=== PATIENT | male | born 1955 | race African-American/Black ===

== ENCOUNTER 2018-01-21 03:25 | Emergency (ER) | payer SELFPAY ==
--- NOTE | 2018-01-21 03:59 | ED Physician Documentation ---
Nausea/Vomiting/Diarrhea - HISTORIAN Historian: patient - HPI Stated Complaint: n/v Chief Complaint: Nausea,Vomiting,Diarrhea Additional Information: Patient, with PMH parkinson's disease, presents to ED with a 24 hour history of nausea and vomiting. Patient states he baked a chicken on for dinner. He left the chicken out on the counter for approximately 30 hours and ate another helping. He then began to experience nausea and vomiting. Patient has been unable to keep any food or liquids down. He denies fever, chills, abdominal pain or chest pain. EMS gave him Zofran and 500 ml fluid bolus enroute. Onset: hours (24) Duration: constant Timing: sudden onset Severity: moderate - Associated Symptoms Vomiting: frequent. denies: bloody, blood-streaked Diarrhea: other (No diarrhea) Abdominal Pain: none. denies: cramping, aching - ROS CONST: none CVS/RESP: denies: chest pain, shortness of breath, cough GI/: denies: constipation, black stools, bloody urine EYES/ENT: none MS/SKIN/LYMPH: denies: joint pain NEURO/PSYCH: denies: headache - PAST HX Past History: other (Parkinsons disease) Other History: denies: gall stones, ulcerative colitis Surgeries/Procedures: other (total hip) Allergies/Adverse Reactions: Allergies Allergy/AdvReac Type Severity Reaction Status Date / Time No Known Allergies Allergy Verified 01/21/18 03:47 Home Medications: Ambulatory Orders Medication Instructions Recorded Unobtainable 01/21/18 - SOCIAL HX Smoking History: non-smoker Alcohol Use: none Drug Use: none - FAMILY HX Family History: none - VITAL SIGNS Vital Signs: Vital Signs Temp Pulse Resp BP Pulse Ox 98.3 F 91 H 18 136/90 98 01/21/18 03:43 01/21/18 03:43 01/21/18 03:43 01/21/18 03:43 01/21/18 03:43 - REVIEWED ASSESSMENTS Nursing Assessment Reviewed: Yes Vitals Reviewed: Yes Progress - Progress Progress: 0444 Patient is resting comfortably. Labs WNL. Will continue fluids. 0624 Patient sleeping. No vomiting since presentation to ED. Will discharge to home. ED Results Lab/Radiology - Lab Results Lab Results: Lab Results 01/21/18 01/21/18 04:06 04:06 WBC 4.30 K/ul K/ul (4.00-12.00) RBC 4.64 M/ul M/ul (3.90-5.20) Hgb 14.2 g/dL g/dL (12.0-18.0) Hct 42.5 % % (37.0-53.0) MCV 92.0 fl fl (80.0-100.0) MCH 30.6 pg pg (28.0-34.0) MCHC 33.4 g/dL g/dL (30.0-36.0) RDW 14.0 % % (11.3-14.3) Plt Count 252 K/mm3 K/mm3 (130-400) Neut % (Auto) 74.6 % % (39.0-79.0) Lymph % (Auto) 16.6 % % (16.0-50.0) Banner % (Auto) 6.1 % % (0.0-11.0) Eos % (Auto) 2.5 % % (0.0-6.8) Baso % (Auto) 0.2 (0.0-1.5) Neut # (Auto) 3.2 # k/uL # k/uL (1.4-7.7) Lymph # (Auto) 0.7 # k/uL # k/uL (0.6-4.0) Banner # (Auto) 0.3 # k/uL # k/uL (0.0-0.9) Eos # (Auto) 0.1 # k/uL # k/uL (0.0-0.6) Baso # (Auto) 0.0 # k/uL # k/uL (0.0-0.5) Sodium 142 mmol/L mmol/L (136-145) Potassium 4.4 mmol/L mmol/L (3.5-5.1) Chloride 99 mmol/L mmol/L (98-107) Carbon Dioxide 29 mmol/L mmol/L (22-30) BUN 17 mg/dL mg/dL (9-20) Creatinine 0.70 mg/dL mg/dL (0.66-1.25) Estimated Creat Clear 110 Est GFR ( Amer) > 60 (60 - ) Est GFR (Non-Af Amer) > 60 (60 - ) Glucose 110 mg/dL H mg/dL (74-106) Calcium 8.2 mg/dL L mg/dL (8.4-10.2) Total Bilirubin 0.9 mg/dL mg/dL (0.2-1.3) AST 22 U/L U/L (15-46) ALT 24 U/L U/L (13-69) Alkaline Phosphatase 74 U/L U/L (38-126) Total Protein 7.8 g/dL g/dL (6.3-8.2) Albumin 3.8 g/dL g/dL (3.5-5.0) - Orders Orders: ED Orders Category Date Time Status CBC/PLATELET/DIFF Routine Lab 01/21/18 04:06 Completed CMP Routine Lab 01/21/18 04:06 Completed 0.9 % Sodium Chloride [Normal Saline] 1,000 ml Med 01/21/18 03:47 Discontinued IV Q1H Metoclopramide HCl [Reglan] Med 01/21/18 03:47 Discontinued 5 mg IVP NOW ONE Pantoprazole Sodium [Protonix] Med 01/21/18 04:15 Discontinued 40 mg .ROUTE .STK-MED ONE Pantoprazole Sodium [Protonix] 40 mg Med 01/21/18 04:03 Discontinued 0.9 % Sodium Chloride [Sodium Chloride] 50 ml IV NOW Nausea Physical Exam - EXAM General Appearance: no acute distress, alert EENT: BOB Neck: supple Respiratory: no resp distress, chest non-tender, breath sounds normal CVS: reg rate & rhythm, heart sounds normal Abdomen: non-tender (soft). No: guarding Male Genital: other (deferred) Rectal: deferred Back: No: CVA tenderness Skin: warm/dry, normal color Extremities: non-tender, no edema Neuro/Psych: oriented X3, motor nml Discharge Clincal Impression: Food poisoning Qualifiers: Encounter type: initial encounter Injury intent: accidental or unintentional Qualified Code(s): T62.91XA - Toxic effect of unspecified noxious substance eaten as food, accidental (unintentional), initial encounter Additional Instructions: Return to ED if fever >101.0 or vomiting/diarrhea persists more than 24 hours. Condition: Stable Disposition: 01 HOME, SELF-CARE Decision to Admit: NO Date of Decison to Admit: 01/21/18 Decision Time: 06:26
[2018-01-21] MEDS: PANTOPRAZOLE SODIUM 40 MG in 0.9 % SODIUM CHLORIDE 50 ML IV ONE (04:10)
[2018-01-21] MEDS: METOCLOPRAMIDE HCL 10 MG/2 ML VIAL IVP ONE (04:10)
[2018-01-21] MEDS: 0.9 % SODIUM CHLORIDE 1,000 ML IV ONE (04:20)
[2018-01-21] MEDS: PANTOPRAZOLE SODIUM INJ. 40 MG VIAL ONE (04:22)
[2018-01-21 04:24] LABS: eGFR (Non-African) > 60
[2018-01-21 04:25] LABS: BASOPHILS % 0.2 (0.0-1.5); EOSINOPHILS % 2.5 % (0.0-6.8); MEAN CORPUSCULAR HEMOGLOBIN 30.6 pg (28.0-34.0); MONOCYTES % 6.1 % (0.0-11.0); NEUTROPHILS # 3.2 # k/uL (1.4-7.7)
[2018-01-21 07:47] VITALS: BP 101/75
== END 2018-01-21 07:35 | disposition home or self-care (01) ==
LOC: ED 03:25
DX: R11.2 Nausea with vomiting, unspecified (principal); T62.91XA Toxic effect of unspecified noxious substance eaten as food, accidental (unintentional), initial encounter; X58.XXXA Exposure to other specified factors, initial encounter; Y92.018 Other place in single-family (private) house as the place of occurrence of the external cause; Y93.9 Activity, unspecified; Y99.9 Unspecified external cause status; G20 Parkinson's disease
CPT/HCPCS: 80053; 85025; J7030; 96365; 96375; 99284

== ENCOUNTER 2018-07-04 08:55 | Observation (INO) | payer SELFPAY ==
[2018-07-04] MEDS ORDERED: METOCLOPRAMIDE HCL 10 MG/2 ML VIAL IVP ONE (09:05)
--- NOTE | 2018-07-04 10:41 | ED Physician Documentation ---
Hip Injury/Pain - HISTORIAN Historian: patient - HPI Stated Complaint: right hip pain Chief Complaint: Hip Injury Additional Information: Patient, with PMH of parkinson's, presents to ED via ambulance after falling at home. He complains of right hip pain. Patient admits to chronic right hip pain after getting a total hip replacement several years ago. He also reports some nausea/vomiting. Patient states he vomited this morning, what appeared to be his dinner from last night Onset: hours (2) Where: home Severity: mild Duration: persistent since Context: fall Symptoms Prior to Fall: none Other Injuries: none - ROS CONST: no problems RESP: denies: shortness of breath GI/: none EYES/ENT: none MS/SKIN/LYMPH: denies: neck pain NEURO/PSYCH: denies: confusion - PAST HX Cardiac Disease: none PE Risk Factors: none Other History: hip fracture (right), other (parkinsons ) Surgeries/Procedures: hip replacement Allergies/Adverse Reactions: Allergies Allergy/AdvReac Type Severity Reaction Status Date / Time No Known Allergies Allergy Verified 07/04/18 09:07 Home Medications: Ambulatory Orders Medication Instructions Recorded Carbidopa/Levodopa [Sinemet] 1 tab PO TID 07/04/18 Ondansetron HCl Rapdis [Zofran Odt] 4 mg PO Q8 PRN #30 tab 07/04/18 - SOCIAL HX Smoking History: non-smoker Alcohol Use: none Drug Use: none - FAMILY HX Family History: No - VITAL SIGNS Vital Signs: Vital Signs Temp Pulse Resp BP Pulse Ox 97.8 F 86 18 115/79 100 07/04/18 09:00 07/04/18 09:00 07/04/18 09:00 07/04/18 09:00 07/04/18 09:00 - REVIEWED ASSESSMENTS Nursing Assessment Reviewed: Yes Vitals Reviewed: Yes Progress - Progress Progress: 1046 Discussed xray results. Patient reports ongoing nausea. Blood pressure is also soft. Will give Zofran and 1 liter NS bolus ED Results Lab/Radiology - Radiology Radiology Impressions: Report Submission Date: Jul 04, 2018 10:32:36 AM CDT Patient Study Name: DIONE JACK Date: Jul 04, 2018 9:31:00 AM CDT Modality Type: DX Gender: M Description: RT HIP 2VIEW COMPLETE : 55 Institution: [facility] Physician: MOISES KONG EXAMINATION: RT HIP 2VIEW COMPLETE HISTORY: RT HIP/PELVIS, RT HIP/GROIN PAIN AFTER FALL COMPARISON: None FINDINGS: Right hip total arthroplasty has been performed. There is no evidence of periprosthetic fracture or lucency. No acute fracture or dislocation is identified in the pelvis. The left hip joint space is maintained. The pubic symphysis is intact. IMPRESSION: Right hip total arthroplasty without evidence of periprosthetic fracture. Electronically signed on Jul 04, 2018 10:32:36 AM CDT by: Lebron Hernandez Report Submission Date: Jul 04, 2018 10:28:39 AM CDT Patient Study Name: DIONE JACK Date: Jul 04, 2018 9:31:20 AM CDT Modality Type: DX Gender: M Description: RT FEMUR 2 VIEWS : 55 Institution: [facility] Physician: MOISES KONG Exam: Right femur. History: Medial pain after fall. AP and lateral views of the right femur are submitted. No previous studies are available for comparison. An orthopedic device replaces the right hip joint. No signs of acute fracture or dislocation is identified. No bony erosions are seen. Impression: No acute fractures detected on this study. Electronically signed on Jul 04, 2018 10:28:39 AM CDT by: Erich Matias - Orders Orders: ED Orders Category Date Time Status Place IV Lock 1T Care 07/04/18 09:04 Active RT FEMUR 2 VIEWS [RAD] Stat Exams 07/04/18 Taken RT HIP 2VIEW COMPLETE [RAD] Stat Exams 07/04/18 Taken 0.9 % Sodium Chloride [Normal Saline] 1,000 ml Med 07/04/18 10:47 Discontinued IV Q1H Metoclopramide HCl [Reglan] Med 07/04/18 09:05 Discontinued 5 mg IVP NOW ONE Ondansetron HCl/Pf [Zofran] Med 07/04/18 10:47 Discontinued 4 mg IVP NOW ONE Hip Injury/Pain Physical Exam - EXAM General Appearance: no acute distress, alert Extremities: non-tender, no pedal edema, hip tenderness (right lateral ) EENT: BOB Neck: non-tender. No: vertebral point tendernes Respiratory: chest non-tender, breath sounds nml CVS: reg rate & rhythm, heart sounds normal Abdomen: non-tender, nml bowel sounds Back: non-tender. No: vertebral point-tendernes Skin: warm/dry Neuro/Psych: oriented x3, mood/affect nml Discharge Clincal Impression: Hip pain, right Nausea & vomiting Qualifiers: Vomiting type: unspecified Vomiting Intractability: non-intractable Qualified Code(s): R11.2 - Nausea with vomiting, unspecified Prescriptions: Ondansetron HCl Rapdis [Zofran Odt] 4 mg PO Q8 PRN #30 tab PRN Reason: nausea/vomiting Referrals: Primary Doctor,No [Primary Care Provider] - 2 Days Condition: Stable Disposition: 01 HOME, SELF-CARE Decision to Admit: NO Date of Decison to Admit: 07/04/18 Decision Time: 12:21
[2018-07-04] MEDS ORDERED: ONDANSETRON HCL/PF 4 MG/ 2ML VIAL IVP ONE (10:47)
[2018-07-04] MEDS ORDERED: 0.9 % SODIUM CHLORIDE 1,000 ML IV ONE (10:47)
[2018-07-04 13:13] LABS: BASOPHILS % 1.2 % (0.0-1.5); EOSINOPHILS % 10.5 % (0.0-6.8); MEAN CORPUSCULAR HEMOGLOBIN 30.7 pg (28.0-34.0); MONOCYTES % 5.8 % (0.0-11.0)
--- NOTE | 2018-07-04 13:15 | Diagnostic Imaging Report ---
MOISES KONG [facility] [address] [facility].[address] [address] Report Submission Date: Jul 04, 2018 10:28:39 AM CDT Patient Study Name: DIONE JACK Date: Jul 04, 2018 9:31:20 AM CDT Modality Type: DX Gender: M Description: RT FEMUR 2 VIEWS : 55 Institution: [facility] Physician: MOISES OKNG Exam: Right femur. History: Medial pain after fall. AP and lateral views of the right femur are submitted. No previous studies are available for comparison. An orthopedic device replaces the right hip joint. No signs of acute fracture or dislocation is identified. No bony erosions are seen. Impression: No acute fractures detected on this study. Electronically signed on Jul 04, 2018 10:28:39 AM CDT by: Erich SCHREIBER
--- NOTE | 2018-07-04 13:16 | Diagnostic Imaging Report ---
MOISES KONG [facility] [address] [facility].[address] [address] Report Submission Date: Jul 04, 2018 10:32:36 AM CDT Patient Study Name: DIONE JACK Date: Jul 04, 2018 9:31:00 AM CDT Modality Type: DX Gender: M Description: RT HIP 2VIEW COMPLETE : 55 Institution: [facility] Physician: MOISES KONG EXAMINATION: RT HIP 2VIEW COMPLETE HISTORY: RT HIP/PELVIS, RT HIP/GROIN PAIN AFTER FALL COMPARISON: None FINDINGS: Right hip total arthroplasty has been performed. There is no evidence of periprosthetic fracture or lucency. No acute fracture or dislocation is identified in the pelvis. The left hip joint space is maintained. The pubic symphysis is intact. IMPRESSION: Right hip total arthroplasty without evidence of periprosthetic fracture. Electronically signed on Jul 04, 2018 10:32:36 AM CDT by: Lebron SCHREIBER
[2018-07-04 13:19] LABS: eGFR (Non-African) > 60
[2018-07-04] MEDS ORDERED: ENOXAPARIN SODIUM 30 MG/0.3 ML DISP.SYRIN SQ ONE (13:22)
[2018-07-04] MEDS ORDERED: ONDANSETRON HCL/PF 4 MG/ 2ML VIAL IVP PRN (13:27)
[2018-07-04] MEDS ORDERED: PROMETHAZINE HCL 25 MG TABLET PO PRN (13:29)
[2018-07-04] MEDS ORDERED: DOCUSATE SODIUM 100 MG CAPSULE PO PRN (13:32)
[2018-07-04] MEDS ORDERED: IBUPROFEN 400 MG TABLET PO PRN (13:33)
[2018-07-04 13:54] VITALS: BMI 22.1
[2018-07-04] MEDS: DEXTROSE 5 %-0.45 % SOD CHLORD 1,000 ML IV SCH (14:25)
[2018-07-04] MEDS: ACETAMINOPHEN WITH CODEINE 300MG/30MG TABLET PO PRN (20:11)
[2018-07-05] MEDS: ACETAMINOPHEN WITH CODEINE 300MG/30MG TABLET PO PRN ×2 (01:46→08:33)
[2018-07-05] MEDS: DEXTROSE 5 %-0.45 % SOD CHLORD 1,000 ML IV SCH (04:42)
[2018-07-05 09:12] VITALS: BP 110/55
--- NOTE | 2018-07-05 10:09 | Discharge Summary ---
Discharge Summary - Discharge [facility] Admission Date: 07/05/18 Discharge Date: 07/05/18 Condition at Discharge: Stable Home Medications: Ambulatory Orders Medication Instructions Recorded Carbidopa/Levodopa [Sinemet] 1 tab PO TID 07/04/18 Ondansetron HCl Rapdis [Zofran Odt] 4 mg PO Q8 PRN #30 tab 07/04/18 Consultations this Visit: None Procedures this Visit: None (he did not wish to have any services from social security assessor ) Allergies/Adverse Reactions: Allergies Allergy/AdvReac Type Severity Reaction Status Date / Time No Known Allergies Allergy Verified 07/04/18 09:07 Patient Problems: Current Active Problems Problem Status Onset Hip pain, right Acute Intractable vomiting with nausea Acute Nausea & vomiting Acute Hospital Course: Discharge obs
== END 2018-07-05 12:50 | disposition home or self-care (01) ==
LOC: ED 08:55 → SOUTH 13:15
PROVIDERS: ADMIT Physician Assistant Medical; ATTEND Nurse Practitioner Family
DX: M25.551 Pain in right hip (principal); R11.2 Nausea with vomiting, unspecified; W19.XXXA Unspecified fall, initial encounter; Y92.009 Unspecified place in unspecified non-institutional (private) residence as the place of occurrence of the external cause; Z96.641 Presence of right artificial hip joint
CPT/HCPCS: 73502; 73552; 80053; 85025; 96374; 96375; 97110; 97116; 97535; 99284; G0378; J1650; J2405; J7030; 99217; S1016; S5010

== ENCOUNTER 2018-08-07 18:54 | Emergency (ER) | payer SELFPAY ==
--- NOTE | 2018-08-07 19:36 | ED Physician Documentation ---
General Adult - HISTORIAN Historian: patient - HPI Stated Complaint: Nausea/Vomiting Chief Complaint: General Adult Onset: days ago Timing: still present Severity: moderate Further Comments: yes (Pt is a 63 yo aa male who was seen earlier at [facility] ER for n/v. A taxi-cab was arranged for pt to go home, and he vomited again on the way out of the . [facility] ER. He directed the taxi to take him here to [place] [facility]. Pt has been seen here before with c/o n/v. 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 At the [facility], he says, they gave hime only about 1/4 bag of IV fluid and then sent him home. He says he is dehydrated and that gets n/v when he is dehydrated. Pt has hx Parkinson's dz and of hip replacement. He denies cp, sob, fever, change in bm's.) - ROS CONST: weakness EYES/ENT: none CVS/RESP: none GI/: vomiting, nausea MS/SKIN/LYMPH: none - PAST HX Past History: other (Parkinson's dz, hip replacement) Allergies/Adverse Reactions: Allergies Allergy/AdvReac Type Severity Reaction Status Date / Time No Known Allergies Allergy Verified 08/07/18 19:20 Home Medications: Ambulatory Orders Medication Instructions Recorded Carbidopa/Levodopa [Sinemet] 1 tab PO TID 07/04/18 Ondansetron HCl Rapdis [Zofran Odt] 4 mg PO Q8 PRN #10 tab 08/08/18 - SOCIAL HX Smoking History: cigarettes, less than 1 pack/day - FAMILY HX Family History: No - VITAL SIGNS Vital Signs: Vital Signs Temp Pulse Resp BP Pulse Ox 99.3 F 86 16 133/77 99 08/07/18 19:13 08/07/18 19:13 08/07/18 19:13 08/07/18 19:13 08/07/18 19:13 - REVIEWED ASSESSMENTS Nursing Assessment Reviewed: Yes Vitals Reviewed: Yes Progress - Progress Progress: NS 1 L IVF Zofran 4 mg IV Rx Zofran 4 mg ODT. # 10. Take one every 8 hours as needed for nausea/vomiting. 2 tablets--> home. General Adult Physical Exam - PHYSICAL EXAM GENERAL APPEARANCE: mild distress EENT: pharynx normal NECK: normal inspection, supple RESPIRATORY: no resp distress, chest non-tender, breath sounds normal CVS: reg rate & rhythm, heart sounds normal, equal pulses ABDOMEN: soft, no organomegaly, normal bowel sounds BACK: normal inspection, no CVA tenderness SKIN: warm/dry, normal color EXTREMITIES: non-tender, normal range of motion, no evidence of injury, no edema NEURO: oriented X3, motor nml, sensation nml Discharge Clincal Impression: Nausea & vomiting Qualifiers: Vomiting type: unspecified Vomiting Intractability: non-intractable Qualified Code(s): R11.2 - Nausea with vomiting, unspecified Prescriptions: Ondansetron HCl Rapdis [Zofran Odt] 4 mg PO Q8 PRN #10 tab PRN Reason: Nausea / Vomiting Referrals: Primary Doctor,No [Primary Care Provider] - Condition: Stable Disposition: 01 HOME, SELF-CARE Decision to Admit: NO Decision Time: 00:20
[2018-08-07] MEDS ORDERED: 0.9 % SODIUM CHLORIDE 1,000 ML IV ONE (19:44)
[2018-08-07 20:38] LABS: APPEARANCE,URINE CLEAR (CLEAR); COLOR,URINE YELLOW (YELLOW); OCCULT BLOOD,URINE TRACE-INTACT (NEGATIVE); PH URINE 6.5 (5.0 - 8.0); UROBILINOGEN URINE 0.2 Eu (0.2-1.0)
[2018-08-07 20:44] LABS: MEAN CORPUSCULAR HEMOGLOBIN 30.9 pg (28.0-34.0)
[2018-08-07 20:53] LABS: eGFR (Non-African) > 60
[2018-08-07] MEDS ORDERED: ONDANSETRON HCL/PF 4 MG/ 2ML VIAL IVP ONE (20:57)
[2018-08-07 21:01] LABS: BASOPHILS % 0 % (0-2); EOSINOPHILS % 9 % (0-7); MONOCYTES % 8 % (0-11); SEGMENTED NEUTROPHILS % 49 % (39-79)
[2018-08-07] MEDS ORDERED: PANTOPRAZOLE SODIUM IVP ONE (21:52)
[2018-08-07] MEDS ORDERED: SALINE FLUSH IVP ONE (21:52)
[2018-08-08] MEDS ORDERED: ONDANSETRON HCL 4 MG TAB.RAPDIS PO ONE (00:18)
[2018-08-08 01:07] VITALS: BP 116/70
== END 2018-08-08 00:49 | disposition home or self-care (01) ==
LOC: ED 18:54
DX: R11.2 Nausea with vomiting, unspecified (principal)
CPT/HCPCS: 36415; 80053; 81002; 83880; 85025; 93005; 96374; 96375; 99283; 99284; J2405; J7030; S1016